=== PATIENT | female | born 1990 ===

== ENCOUNTER 2022-09-28 11:11 | Outpatient (OUT) | payer OTHER, SELFPAY ==
[2022-09-28 11:58] LABS: Basophils Absolute Auto 0.1 10^3/uL (0.0-0.1); Basophils Percent Auto 0.8 % (0.2-2.0); Eosinophils Absolute Auto 0.1 10^3/uL (0.0-0.7); Hematocrit 40.4 % (36.0-48.0); Hemoglobin 12.9 g/dL (12.0-16.0); Immature Granulocytes Abs Auto 0.08 10^3/uL (0.00-0.03); Immature Granulocytes Pct Auto 1.3 % (0.0-0.5); Lymphocytes Percent Auto 31.6 % (20.5-60.0); Mean Corpuscular HGB Conc 31.9 g/dL (29.9-35.2); Mean Corpuscular Hemoglobin 25.8 pg (26.7-34.0); Mean Corpuscular Volume 80.8 fL (81.0-99.0); Mean Platelet Volume 9.3 fL (9.5-13.5); Monocytes Absolute Auto 0.5 10^3/uL (0.3-0.8); Monocytes Percent Auto 8.4 % (1.7-12.0); Neutrophils Absolute Auto 3.6 10^3/uL (1.4-6.5); Neutrophils Percent Auto 55.9 % (43.0-75.0); Nucleated Red Blood Cells 0; Platelet Count 390 10^3/uL (150-450); Red Cell Distribution Width 13.8 % (11.0-15.0); White Blood Count 6.4 10^3/uL (4.0-11.0)
[2022-09-28 12:09] LABS: Estimated Average Glucose 103 mg/dL; Glycohemoglobin A1C 5.2 % (4.5-6.2)
[2022-09-28 12:22] LABS: Free T4 0.98 ng/dL (0.76-1.46)
[2022-09-28 12:59] LABS: HCG Quantitative <1 mIU/mL; Thyroid Stimulating Hormone 1.441 uIU/mL (0.358-3.740)
[2022-09-29 09:51] LABS: Luteinizing Hormone(LH) 14.9 mIU/mL (.)
[2022-10-04 14:10] LABS: DHEA, Serum 132 ng/dL (31-701)
== END 2022-09-28 11:12 ==
LOC: LAB 11:17
PROVIDERS: Visit Provider Obstetrics & Gynecology
DX: N97.9 Female infertility, unspecified (principal)
CPT/HCPCS: 36415; 82626; 82627; 83001; 83002; 83036; 84439; 84443; 84702; 85025

== ENCOUNTER 2022-10-06 09:53 | Outpatient (OUT) | payer OTHER, SELFPAY ==
--- NOTE | 2022-10-06 09:56 | US_ITS ---
The [address] [address] Patient Name: CLARISA MURPHY MRN: [id number] date: 1990 Sex: F Assigned Patient Location: Current Patient Location: US Accession/Order Number: [id number] Exam Date: 10/06/2022 10:00 Report Date: 10/06/2022 10:51 At the request of: CELIA AHUMADA Procedure: US pelvis w/ transvaginal EXAM: Pelvic ultrasound HISTORY: . FEMALE INFERTILITY . COMPARISON: None. TECHNIQUE: Transabdominal and transvaginal scanning was performed FINDINGS: Exam was somewhat limited due to the patient's body habitus. Scanning of the pelvis demonstrates uterus to be anteflexed and measures 8.8 x 2.9 x 4.3 cm. Endometrial complex measures 5 mm. Right ovary measures 3.8 x 2.9 x 3.5 cm. Color-flow is noted. No masses were noted. Left ovary measured 3.4 x 2.3 x 2.1 cm. Color-flow is noted. No masses were noted. No fluid was noted in the cul-de-sac. IMPRESSION: 1. Limited exam due to the patient's body habitus. 2. The uterus and endometrial complex are unremarkable. 3. Both ovaries are grossly unremarkable. Electronically authenticated by: BELLA SORIANO Date: 10/06/2022 10:51
== END 2022-10-06 09:54 ==
LOC: US 09:53
PROVIDERS: Visit Provider Obstetrics & Gynecology
DX: N97.9 Female infertility, unspecified (principal)
CPT/HCPCS: 76830; 76856

== ENCOUNTER 2022-11-04 11:57 | Outpatient (OUT) | payer OTHER, SELFPAY ==
[2022-11-05 07:13] LABS: Progesterone 0.7 ng/mL (.)
== END 2022-11-04 11:58 | disposition home or self-care (01) ==
PROVIDERS: Visit Provider Obstetrics & Gynecology
DX: N97.9 Female infertility, unspecified (principal); E28.2 Polycystic ovarian syndrome
CPT/HCPCS: 36415; 84144

== ENCOUNTER 2022-12-09 10:07 | Outpatient (OUT) | payer OTHER, SELFPAY | END 2022-12-09 10:08 | disposition home or self-care (01) | LOC: LAB 10:10 | PROVIDERS: Visit Provider Obstetrics & Gynecology | DX: N97.9 Female infertility, unspecified (principal); E28.2 Polycystic ovarian syndrome | CPT/HCPCS: 36415; 84144 ==

== ENCOUNTER 2023-01-15 13:12 | Outpatient (OUT) | payer OTHER, SELFPAY ==
[2023-01-16 04:07] LABS: Progesterone 13.5 ng/mL (.)
== END 2023-01-15 13:13 | disposition home or self-care (01) ==
LOC: LAB 13:13
PROVIDERS: Visit Provider Obstetrics & Gynecology
DX: N97.9 Female infertility, unspecified (principal); E28.2 Polycystic ovarian syndrome
CPT/HCPCS: 36415; 84144

== ENCOUNTER 2023-02-13 12:56 | Outpatient (OUT) | payer OTHER, SELFPAY ==
[2023-02-14 12:09] LABS: Progesterone 23.7 ng/mL (.)
== END 2023-02-13 12:57 | disposition home or self-care (01) ==
LOC: LAB 12:59
PROVIDERS: Visit Provider Obstetrics & Gynecology
DX: N97.9 Female infertility, unspecified (principal); E28.2 Polycystic ovarian syndrome
CPT/HCPCS: 36415; 84144

== ENCOUNTER 2023-04-17 16:11 | Outpatient (OUT) | payer OTHER, SELFPAY ==
[2023-04-19 04:07] LABS: Progesterone 14.8 ng/mL (.)
== END 2023-04-17 16:12 | disposition home or self-care (01) ==
LOC: LAB 16:12
PROVIDERS: Visit Provider Obstetrics & Gynecology
DX: E28.2 Polycystic ovarian syndrome (principal); N97.9 Female infertility, unspecified; N97.0 Female infertility associated with anovulation
CPT/HCPCS: 36415; 84144